=== PATIENT | female | born 2000 | race Caucasian/White ===

== ENCOUNTER → 2022-10-02 | Outpatient (CLI) | payer OTHER ==
[2022-10-02 15:06] LABS: FREE T4 0.95 NG/DL (0.89-1.76); THYROID STIMULATING HORMONE 2.003 uIU/ML (0.55-4.78)
[2022-10-02 15:07] LABS: FOLLICLE STIMULATING HORMONE 5.7 mIU/ML
[2022-10-02 15:08] LABS: LUTEINIZING HORMONE 13.9 mIU/ML
[2022-10-02 15:10] LABS: PROLACTIN 6.99 NG/ML
[2022-10-02 15:13] LABS: PROGESTERONE 0.4 NG/ML
== END ==
LOC: M PLALAB 12:05
PROVIDERS: ATTEND Specialist
DX: N92.6 Irregular menstruation, unspecified (principal)

== ENCOUNTER → 2022-10-17 | Outpatient (CLI) | payer BC ==
[~2022-10-17] MED LIST: ISOVUE-370 76% 100ML VIAL As Ordered ONE
== END ==
LOC: M RADPRO 12:56
PROVIDERS: ATTEND Specialist
DX: N92.6 Irregular menstruation, unspecified (principal)

== ENCOUNTER → 2024-08-10 | Outpatient (CLI) | payer BC ==
[2024-08-10 15:00] LABS: HEMATOCRIT 39.1 % (36.0-47.0); HEMOGLOBIN 12.8 g/dl (12.0-15.5); MEAN CORPUSCULAR HEMOGLOBIN 31.4 pg (27.0-33.0); MEAN CORPUSCULAR HGB CONC 32.7 g/dl (32.0-36.5); MEAN CORPUSCULAR VOLUME 95.8 fl (80.0-96.0); PLATELET COUNT, AUTOMATED 285 10^3/uL (150-450); RED BLOOD COUNT 4.08 10^6/uL (4.00-5.40); WHITE BLOOD COUNT 9.1 10^3/uL (4.0-10.0)
[2024-08-10 16:34] LABS: GC DNA AMPLIFICATION NEGATIVE (NEGATIVE)
[2024-08-10 16:42] LABS: HIV 1&2 SCREEN NEGATIVE (NEGATIVE)
[2024-08-10 16:50] LABS: HEPATITIS C VIRUS ABY INDEX 0.04 INDEX (<0.8)
== END ==
LOC: M PLALAB 11:57
PROVIDERS: ATTEND Nurse Practitioner Family
DX: Z34.81 Encounter for supervision of other normal pregnancy, first trimester (principal)

== ENCOUNTER → 2024-08-13 | Outpatient (CLI) | payer BC | LOC: M WHC 12:55 | PROVIDERS: ATTEND Obstetrics & Gynecology | DX: O09.812 Supervision of pregnancy resulting from assisted reproductive technology, second trimester (principal); Z3A.19 19 weeks gestation of pregnancy; O44.42 Low lying placenta NOS or without hemorrhage, second trimester; O32.1XX0 Maternal care for breech presentation, not applicable or unspecified ==

== ENCOUNTER → 2024-09-24 | Outpatient (CLI) | payer BC | LOC: M WHC 10:57 | PROVIDERS: ATTEND Obstetrics & Gynecology | DX: O44.40 Low lying placenta NOS or without hemorrhage, unspecified trimester (principal); Z3A.25 25 weeks gestation of pregnancy ==

== ENCOUNTER → 2024-10-06 | Outpatient (CLI) | payer BC ==
[2024-10-06 17:38] LABS: HEMATOCRIT 37.9 % (36.0-47.0); HEMOGLOBIN 12.4 g/dl (12.0-15.5); MEAN CORPUSCULAR HGB CONC 32.7 g/dl (32.0-36.5); MEAN CORPUSCULAR VOLUME 94.8 fl (80.0-96.0); PLATELET COUNT, AUTOMATED 320 10^3/uL (150-450); WHITE BLOOD COUNT 10.4 10^3/uL (4.0-10.0)
[2024-10-06 17:45] LABS: GLUCOSE CHALLENGE TEST 1 HOUR 114 MG/DL (LESS THAN 140)
[2024-10-06 18:15] LABS: HIV 1&2 SCREEN NEGATIVE (NEGATIVE)
[2024-10-06 18:23] LABS: HEPATITIS C VIRUS ABY INDEX < 0.02 INDEX (<0.8)
[2024-10-06 20:20] LABS: GC DNA AMPLIFICATION NEGATIVE (NEGATIVE)
== END ==
LOC: M PLALAB 14:21
PROVIDERS: ATTEND Nurse Practitioner Family
DX: Z34.02 Encounter for supervision of normal first pregnancy, second trimester (principal)

== ENCOUNTER → 2024-12-16 | Outpatient (REF) | payer BC, OTHER | LOC: M PLALAB 09:21 | PROVIDERS: ATTEND Nurse Practitioner Family | DX: Z36.85 Encounter for antenatal screening for Streptococcus B (principal); Z3A.36 36 weeks gestation of pregnancy ==

== ENCOUNTER → 2025-09-13 | Outpatient (REF) | payer BC, OTHER ==
[~2025-09-13] MED LIST changes: -ISOVUE-370 76% 100ML VIAL As Ordered ONE; +METR-265 PO; +NOXI1TAB PO; +PRENTAB9 PO
[2025-09-15 16:02] LABS: HPV APTIMA Not Detected (Not Detected)
== END ==
LOC: M SFHCWAGY 13:23
PROVIDERS: ATTEND Obstetrics & Gynecology
DX: Z12.4 Encounter for screening for malignant neoplasm of cervix (principal); Z11.51 Encounter for screening for human papillomavirus (HPV)
CPT/HCPCS: 87624; G0123